=== PATIENT | male | born 1945 | race Caucasian/White ===

== ENCOUNTER 2017-03-29 15:36 | Emergency (ER) | payer OTHER ==
[2017-03-29] MEDS ORDERED: METOCLOPRAMIDE 10 MG/2 ML VIAL IVP ONE (16:10)
[2017-03-29] MEDS ORDERED: HYDROmorphONE/DILAUDID 1 MG/ML INJ IVP ONE (16:10)
[2017-03-29] MEDS ORDERED: NS 1,000 ML IV ONE (16:10)
--- NOTE | 2017-03-29 16:16 | EDPHY ---
H & P Stated Complaint: h/a nausea since yesterday no relief otc, no trauma Time Seen by Provider: 03/29/17 15:54 HPI/ROS: CHIEF COMPLAINT: Headache HISTORY OF PRESENT ILLNESS: The patient is a 72-year-old man who comes to the emergency depart with his complaining of a headache as well as nausea that began this morning. They are concerned because he has a history of venous sinus thrombosis. He is currently on Coumadin. The patient was diagnosed with on Hodgkin's lymphoma 8 years ago. 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 After 1 of these infusions last year he developed a headache that caused seizures. He was admitted to the ICU and ultimately diagnosed with venous sinus thrombosis. This is when the Coumadin was started. He currently takes this as well as Keppra. He had another gammaglobulin flu figueroa 3 days ago. He has not had a fever. He denies any trauma. He states that his INR spasm closely managed. No vision changes. No hearing changes. No chest pain. No focal weakness or deficits. REVIEW OF SYSTEMS: Constitutional: denies: chills, fever, recent illness, recent injury EENTM: denies: blurred vision, double vision, nose congestion Respiratory: denies: cough, shortness of breath Cardiac: denies: chest pain, irregular heart rate, lightheadedness, palpitations Gastrointestinal/Abdominal: denies: abdominal pain, diarrhea, nausea, vomiting, blood streaked stools Genitourinary: denies: dysuria, frequency, hematuria, pain Musculoskeletal: denies: joint pain, muscle pain Skin: denies: lesions, rash, jaundice, bruising Neurological: See HPI denies: numbness, paresthesia, tingling, dizziness, weakness Hematologic/Lymphatic: denies: blood clots, easy bleeding, easy bruising Immunologic/allergic: denies: HIV/AIDS, transplant EXAM: GENERAL: Well-appearing, well-nourished and in no acute distress. HEAD: Atraumatic, normocephalic. EYES: Pupils equal round and reactive to light, extraocular movements intact, sclera anicteric, conjunctiva are normal. ENT: TMs normal, nares patent, oropharynx clear without exudates. Moist mucous membranes. NECK: Normal range of motion, supple without lymphadenopathy or JVD. No meningismus LUNGS: Breath sounds clear to auscultation bilaterally and equal. No wheezes rales or rhonchi. HEART: Regular rate and rhythm without murmurs, rubs or gallops. ABDOMEN: Soft, nontender, normoactive bowel sounds. No guarding, no rebound. No masses appreciated. BACK: No CVA tenderness, no spinal tenderness, step-offs or deformities EXTREMITIES: Normal range of motion, no pitting or edema. No clubbing or cyanosis. NEUROLOGICAL: Cranial nerves II through XII grossly intact. Normal speech, normal gait. 5/5 strength, normal movement in all extremities, normal sensation PSYCH: Normal mood, normal affect. SKIN: Multiple small nodules, baseline Source: Patient, Family Exam Limitations: No limitations - Personal History Tetanus Vaccine Date: 2009 - Medical/Surgical History Hx Asthma: No Hx Chronic Respiratory Disease: No Hx Diabetes: No Hx Cardiac Disease: No Hx Renal Disease: No Hx Cirrhosis: No Hx Alcoholism: No Hx HIV/AIDS: No Hx Splenectomy or Spleen Trauma: No Other PMH: non-hodgkins lymphoma, htn, appy, cataracts, kidney stones, dvt, venous thrombosisclosed head injury - Family History Significant Family History: No pertinent family hx - Social History Smoking Status: Light smoker Alcohol Use: Sober Drug Use: None Constitutional: Initial Vital Signs Temperature (C) 37.0 C 03/29/17 15:47 Heart Rate 73 03/29/17 15:47 Respiratory Rate 16 03/29/17 15:47 Blood Pressure 141/88 H 03/29/17 15:47 O2 Sat (%) 94 03/29/17 15:47 O2 Delivery Mode Room Air O2 (L/minute) 2 Allergies/Adverse Reactions: codeine [Codeine] Allergy (Severe, Verified 02/25/12 20:11) Vomiting Penicillins Allergy (Severe, Verified 02/25/12 20:11) Rash Home Medications: Medication Instructions Recorded Acetaminophen [Tylenol] 1,000 mg PO Q8 PRN 11/05/14 Amphet Asp and D/Amphet [Adderall 20 mg PO DAILY 11/05/14 20 mg (*)] Doxepin HCl [SINEquan 10 MG (*)] 10 mg PO HS 11/05/14 oxyCODONE/APAP 5/325 [Percocet 1 tab PO Q6 PRN 11/05/14 5/325 (*)] Atorvastatin Calcium [Lipitor 40 40 mg PO HS 11/06/14 mg (*)] amLODIPine BESYLATE [Norvasc 5 mg 5 mg PO DAILY 11/06/14 (*)] Enoxaparin Sodium 80 mg SQ Q12 #10 ml 11/11/14 Warfarin Sodium 5 mg PO DAILY #30 tablet 11/11/14 levETIRAcetam [Keppra 500 mg (*)] 500 mg PO BID #60 tab 11/11/14 oxyCODONE IR [Oxycodone Ir (*)] 10 mg PO Q4 PRN #90 tab 11/11/14 Metoclopramide [Reglan 10 mg tab 10 mg PO BID PRN #10 tab 03/29/17 (RX)] Medical Decision Making - Diagnostics Imaging Results: Imaging Impressions Head CT 03/29/17 16:10 Impression: 1. No acute intracranial findings. 2. 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 3. Diffuse cerebral atrophy with periventricular and subcortical low attenuation consistent with chronic microvascular ischemic gliosis. Findings discussed with CARLOS DAVIS 03/29/2017 at 17:36. Head CTA 03/29/17 16:10 Impression: 1. Limited study due to bolus timing with minimal contrast opacification of the right transverse and sigmoid sinuses, improved since 2014, of questionable clinical significance. This could be related to sequela of chronic thrombosis. If symptoms persist and clinical suspicion warrants, consider MRI. 2. No definite new sinus thrombosis is identified. Findings discussed with Dr. Carlos Davis on 03/29/2017 at 17:36. Imaging: Discussed imaging studies w/ call worker person Radiologist ED Course/Re-evaluation: I discussed the imaging options with Dr. Alec Garzon. The patient during his last episode initially had an MRI and MRV which were suspicious for thrombosis but the diagnosis was confirmed with a CT angio. Will obtain a CT to rule out bleeding because he is on Coumadin and then a CT angio to evaluate for thrombosis. 5:50 p.m. I discussed the case with Dr. Gee from Neurology. He feels that the headache is not likely caused by the old thrombosis which is now recanalized. He does not want to increase the patient's Coumadin dose. The patient is feeling much better and feels reassured. He would like to go home. We discussed indications for returning. Differential Diagnosis: Partial list of the Differential diagnosis considered include but were not limited to; tension headache, migraine headache, hemorrhage, thrombosis and although unlikely based on the history and physical exam, I also considered CVA , infection. I discussed these differential diagnoses and the plan with the patient as well as the usual and expected course. The patient understands that the diagnosis is provisional and that in medicine we are not always correct and that further workup is often warranted. Usual and customary warnings were given. All of the patient's questions were answered. The patient was instructed to return to the emergency department should the symptoms at all worsen or return, otherwise to followup with the physician as we discussed. - Data Points Laboratory Results: Laboratory Results 03/29/17 16:04 03/29/17 16:04 03/29/17 03/29/17 03/29/17 16:04 16:04 16:04 WBC 22.02 10^3/uL H 10^3/uL (3.80-9.50) RBC 6.03 10^6/uL 10^6/uL (4.40-6.38) Hgb 18.0 g/dL H g/dL (13.7-17.5) Hct 53.7 % H % (40.0-51.0) MCV 89.1 fL fL (81.5-99.8) MCH 29.9 pg pg (27.9-34.1) MCHC 33.5 g/dL g/dL (32.4-36.7) RDW 13.5 % % (11.5-15.2) Plt Count 378 10^3/uL 10^3/uL (150-400) MPV 8.2 fL L fL (8.7-11.7) Neut % (Auto) 83.7 % H % (39.3-74.2) Lymph % (Auto) 2.8 % L % (15.0-45.0) Young % (Auto) 8.4 % % (4.5-13.0) Eos % (Auto) 3.6 % % (0.6-7.6) Baso % (Auto) 1.0 % % (0.3-1.7) Nucleat RBC Rel Count 0.0 % % (0.0-0.2) Absolute Neuts (auto) 18.42 10^3/uL H 10^3/uL (1.70-6.50) Absolute Lymphs (auto) 0.62 10^3/uL L 10^3/uL (1.00-3.00) Absolute Monos (auto) 1.84 10^3/uL H 10^3/uL (0.30-0.80) Absolute Eos (auto) 0.80 10^3/uL H 10^3/uL (0.03-0.40) Absolute Basos (auto) 0.23 10^3/uL H 10^3/uL (0.02-0.10) Absolute Nucleated RBC 0.00 10^3/uL 10^3/uL (0-0.01) Immature Gran % 0.5 % % (0.0-1.1) Immature Gran # 0.11 10^3/uL H 10^3/uL (0.00-0.10) PT 23.7 SEC H SEC (12.0-15.0) INR 2.11 H (0.83-1.16) Sodium 139 mEq/L mEq/L (135-145) Potassium 4.7 mEq/L mEq/L (3.5-5.2) Chloride 102 mEq/L mEq/L (97-110) Carbon Dioxide 25 mEq/l mEq/l (22-31) Anion Gap 12 mEq/L mEq/L (8-16) BUN 12 mg/dL mg/dL (7-23) Creatinine 0.9 mg/dL mg/dL (0.7-1.3) Estimated GFR > 60 Glucose 105 mg/dL H mg/dL (70-100) Calcium 9.3 mg/dL mg/dL (8.5-10.4) Medications Given: Discontinued Medications Hydromorphone HCl (Dilaudid) 0.5 mg IVP EDNOW ONE Stop: 03/29/17 16:11 Last Admin: 03/29/17 16:21 Dose: 0.5 mg Sodium Chloride (Ns) 1,000 mls @ 0 mls/hr IV ONCE ONE; Wide Open PRN Reason: Protocol Stop: 03/29/17 16:11 Last Admin: 03/29/17 16:21 Dose: 1,000 mls Metoclopramide HCl (Reglan Injection) 10 mg IVP EDNOW ONE Stop: 03/29/17 16:11 Last Admin: 03/29/17 16:20 Dose: 10 mg Departure - Departure Disposition: Home, Routine, Self-Care Clinical Impression: Headache Qualifiers: Headache type: unspecified Headache chronicity pattern: acute headache Intractability: not intractable Qualified Code(s): R51 - Headache Condition: Fair Instructions: Acute Headache (ED) Referrals: Connie Stewart MD [Medical Doctor] - As per Instructions Oleg Wright MD [Primary Care Provider] - As per Instructions Prescriptions: Metoclopramide [Reglan 10 mg tab (RX)] 10 mg PO BID PRN #10 tab PRN Reason: Headache
[2017-03-29 16:21] LABS: PLATELET COUNT 378 10^3/uL (150-400)
[2017-03-29 16:26] VITALS: O2SAT 95
[2017-03-29 16:30] LABS: INR 2.11 (0.83-1.16); PROTIME(PATIENT) 23.7 SEC (12.0-15.0)
[2017-03-29] MEDS ORDERED: IOPAMIDOL (ISOVUE 370) 100 ML BTL IV ONE (16:37)
[2017-03-29 18:21] VITALS: BP 138/77; PULSE 71; RESP 18; TEMP 98.2
== END 2017-03-29 18:20 | disposition home or self-care (01) ==
DX: R51 Headache (principal); I10 Essential (primary) hypertension; F17.200 Nicotine dependence, unspecified, uncomplicated; E86.9 Volume depletion, unspecified; Z79.01 Long term (current) use of anticoagulants
CPT/HCPCS: 70450; 70496; 96361; 96374; 96375; 99285; J1170; J2765; Q9967

== ENCOUNTER → 2017-09-13 | Outpatient (CLI) | payer OTHER ==
[~2017-09-13] MED LIST: IOPAMIDOL (ISOVUE 370) 100 ML BTL IV ONE
== END ==
LOC: FIMAGING 15:06
PROVIDERS: ATTEND Psychiatry & Neurology Neurology
DX: I65.23 Occlusion and stenosis of bilateral carotid arteries (principal); L72.3 Sebaceous cyst; M79.89 Other specified soft tissue disorders
CPT/HCPCS: 70496; 70498; Q9967